=== PATIENT | male | born 1945 | race Caucasian/White ===

== ENCOUNTER 2017-02-03 06:39 | Day surgery (SDC) | payer OTHER ==
[~2017-02-03] VITALS: Ht 185.4 cm; Wt 90.0 kg
[~2017-02-03 06:39] MED LIST: ASPIR 8181 M1 PO; CIALIS2.5 MG PO; FLONASE16 G1 BOTH NARES; PRESERVISION A1 EAC2 PO; PROTONIX40 MG PO; VENTOLIN HFA18 GM IH; ZOCOR10 MG PO
[2017-02-03 07:05] LABS: HEMATOCRIT 40.9 % (38.0-50.0); MCH 31.7 PG (29.0-34.0); MCHC 33.7 G/DL (30.0-36.0); MEAN PLAT.VOLUME 9.4 uM^3 (9.0-12.4); PLATELET COUNT 194 K/uL (156-360); RBC DIS.WIDTH-SD 44.5 % (39-53); RED BLOOD COUNT 4.35 M/uL (4.00-5.50); WHITE BLOOD COUNT 5.3 K/uL (4.1-10.2)
[2017-02-03 07:16] VITALS: BP 156/75
[2017-02-03 07:27] LABS: CHLORIDE 107 mEq/L (99-109); POTASSIUM 3.9 mEq/L (3.7-5.4); SODIUM 140 mEq/L (136-147)
[2017-02-03 07:29] LABS: GLUCOSE 93 mg/dL (70-99)
[2017-02-03 07:30] LABS: ANION GAP 7 MEQ/L (2-14)
[2017-02-03 07:31] LABS: TOTAL BILIRUBIN 0.8 mg/dL (0.0-1.0)
[2017-02-03 07:32] LABS: ALKALINE PHOSPHATASE 63 IU/L (3-129)
[2017-02-03 07:33] LABS: GFR ESTIMATE (CALCULATED) > 59 mL/min/
[2017-02-03 07:34] LABS: UREA NITROGEN (BUN) 16 mg/dL (9-23)
[2017-02-03 10:57] VITALS: BP 163/70
[2017-02-03 11:47] VITALS: BP 147/67
== END 2017-02-03 11:47 | disposition home or self-care (01) ==
LOC: SDC 06:39
PROVIDERS: Ophthalmology
DX: H43.12 Vitreous hemorrhage, left eye (principal); H33.012 Retinal detachment with single break, left eye; K21.9 Gastro-esophageal reflux disease without esophagitis; E78.5 Hyperlipidemia, unspecified; Z79.82 Long term (current) use of aspirin; Z88.0 Allergy status to penicillin; Z88.2 Allergy status to sulfonamides
CPT/HCPCS: 80053; 85027; 93005; J0690; J1100; J2795; J3300